=== PATIENT | male | born 1955 | race Caucasian/White ===

== ENCOUNTER 2023-03-06 13:54 | Inpatient (IN) | payer BC, OTHER ==
[~2023-03-06] VITALS: Ht 185.4 cm; Wt 136.1 kg
[~2023-03-06 13:54] MED LIST: ATOR10TA PO; BUS5 PO; CARV25TA PO; LAM200 PO; QUIN5TAB PO; RIVA20TA PO; TAMS0.4C96 PO; VARD10TA PO; [UNRECOGNIZED DRUG - CODE] PO; [UNRECOGNIZED DRUG - CODE] PO; hydrocodone
[2023-03-06 13:56] VITALS: BP 157/98
[2023-03-06] MEDS ORDERED: MORPHINE SULFATE 4 MG/ML SYR IVP ONE (14:50)
[2023-03-06] MEDS ORDERED: NACL 0.9% 1,000 ML IV ONE ×2 (14:50→18:15)
[2023-03-06 15:23] LABS: BASOPHILS % (AUTO) 0.3 % (0.0-2.0); HEMATOCRIT 34.1 % (36-52); HEMOGLOBIN 11.6 g/dL (12.0-18.0); LYMPHOCYTES # (AUTO) 0.7 K/uL (2.0-11.5); LYMPHOCYTES % (AUTO) 5.5 % (20.5-51.1); MEAN CORPUSCULAR HEMOGLOBIN 33 pg (27-31); MEAN CORPUSCULAR HGB CONC 34 g/dL (33-37); MEAN CORPUSCULAR VOLUME 97.6 fL (80-94); MONOCYTES # (AUTO) 1.5 K/uL (0.8-1.0); NEUTROPHILS # (AUTO) 10.5 K/uL (1.8-7.7); NEUTROPHILS % (AUTO) 82.2 % (42.2-75.2); PLATELET COUNT (AUTO) 366 K/uL (140-450); WHITE BLOOD COUNT (AUTO) 12.8 K/uL (4.8-10.8)
[2023-03-06 15:40] LABS: APPEARANCE,URINE CLEAR (CLEAR); BILIRUBIN,URINE 1+ (NEGATIVE); BLOOD, URINE TRACE-I (NEGATIVE); COLOR,URINE YELLOW (YELLOW); LEUKOCYTE ESTERASE ,URINE 2+ (NEGATIVE); NITRITE, URINE POSITIVE (NEGATIVE); UGLUCOSE NEGATIVE (NEGATIVE)
[2023-03-06 15:48] LABS: ALBUMIN 2.7 g/dL (3.4-5.0); ANION GAP 13.4 (8-16); ASPARTATE AMINOTRANSFERASE 51 U/L (15-37); CARBON DIOXIDE 26.9 mmol/L (21-32); CHLORIDE 88 mmol/L (98-107); CREATININE 1.3 mg/dL (0.6-1.3); GFR ARICAN-AMERICAN 71 mL/min (>90); GLUCOSE 122 mg/dL (74-106); MAGNESIUM 2.2 mg/dL (1.8-2.4); PHOSPHORUS 2.5 mg/dL (2.5-4.9); POTASSIUM 4.3 mmol/L (3.5-5.1); SODIUM SERUM 124 mmol/L (136-145); THYROID STIMULATING HORMONE 1.45 uIU/mL (0.34-3.74); TOTAL BILIRUBIN 1.5 mg/dL (0.0-1.0); UREA NITROGEN, BLOOD 21 mg/dL (7-18)
[2023-03-06] MEDS ORDERED: cefTRIAXone 1,000 MG VIAL ONE (18:18)
--- NOTE | 2023-03-06 19:25 | NUR ---
Patient will be admitted to care of Dr. ALBERTO. Admited to Tele. Will go to room 123B. Belongings list completed. Report to Rico JIMENEZ.
--- NOTE | 2023-03-06 19:55 | NUR ---
PT WAS TRANSPORTED VIA GURNEY FROM ER. PT IS AAX4 ON RA SATING 97%. PT HAS LEFT AC 20 GAUGE SALINE LOCK. VITAL SIGNS STABLE. URINAL BY BEDSIDE. EDUCATED PT BUSINESS RULES ANALYST LIGHT SYSTEM AND ROOM ENVIRONMENT. SAFETY MEASURES TAKEN. POC DISCUSSED. WILL CONTINUE TO MONITOR THE PT.
[2023-03-06 20:00] VITALS: BP 136/70
[2023-03-06] MEDS ORDERED: MORPHINE SULFATE 2 MG/ML SYR IVP SCH (20:30)
[2023-03-06] MEDS ORDERED: ZOLPIDEM 5 MG TAB PO PRN (21:00)
[2023-03-06] MEDS ORDERED: ONDANSETRON 4 MG/2 ML VIAL IM/IVP PRN (21:00)
[2023-03-06] MEDS ORDERED: POTASSIUM CHLORIDE 10 MEQ TABER PO PRN (21:00)
[2023-03-06] MEDS ORDERED: guaiFENesin DM 200/20 MG-10 ML 10 ML UDC PO PRN (21:00)
[2023-03-06] MEDS ORDERED: HYDROcodone/APAP 7.5/325 MG 1 TAB PO PRN (21:00)
[2023-03-06] MEDS ORDERED: ACETAMINOPHEN 325 MG TAB PO PRN (21:00)
[2023-03-06] MEDS ORDERED: DOCUSATE SODIUM 100 MG GELCAP PO PRN (21:00)
[2023-03-06] MEDS ORDERED: hydrALAZINE 20 MG/ML VIAL IVP PRN (21:05)
[2023-03-06] MEDS: TAMSULOSIN 0.4 MG CAP PO SCH (22:08)
[2023-03-06] MEDS: ATORVASTATIN 20 MG TAB PO SCH (22:09)
[2023-03-06] MEDS: busPIRone 5 MG TAB PO SCH (22:09)
[2023-03-06] MEDS: NACL 0.9% 1,000 ML IV SCH (22:10)
[2023-03-06] MEDS: carvediloL 12.5 MG TAB PO SCH (22:10)
--- NOTE | 2023-03-06 22:10 | NUR ---
SCHEDULE MEDICATIONS GIVEN. NO ADVERSE REACTION NOTED. PT COMPLAINED OF LOWER AND UPPER EXTREMITY PAIN 9/10. MORPHINE WAS GIVEN ORDERED.
[2023-03-06 22:13] LABS: PROTHROMBIN TIME 11.8 secs (10.8-13.4)
[2023-03-06 22:20] LABS: FREE T4 (FREE THYROXINE) 1.33 ng/dL (0.76-1.46)
[2023-03-06] MEDS ORDERED: Z-GUARD PASTE TP PRN (22:45)
[2023-03-07] VITALS: BP 119/66
--- NOTE | 2023-03-07 01:00 | NUR ---
OBSERVED PT. PT IS SLEEPING COMFORTABLY IN BED. PT NOT IN ANY DISTRESS. BREATHING EVEN AND UNLABORED. WILL CONTINUE TO MONITOR THE PT.
[2023-03-07] MEDS: Z-GUARD PASTE TP SCH ×2 (01:06→13:56)
--- NOTE | 2023-03-07 02:35 | NUR ---
PT USED URINAL STANDING UP. PT DENIES ANY DIZZINESS. PT ONLY STATES HE IS IN PAIN. PT IS A LITTLE UNBALANCE.
[2023-03-07 04:00] VITALS: BP 119/58
[2023-03-07] MEDS ORDERED: cefTRIAXone 1,000 MG VIAL ONE (05:32)
[2023-03-07 05:36] LABS: BASOPHILS % (AUTO) 0.2 % (0.0-2.0); EOSINOPHILS % (AUTO) 0.1 % (0.0-4.0); HEMATOCRIT 30.3 % (36-52); HEMOGLOBIN 10.6 g/dL (12.0-18.0); LYMPHOCYTES # (AUTO) 0.9 K/uL (2.0-11.5); LYMPHOCYTES % (AUTO) 7.7 % (20.5-51.1); MEAN CORPUSCULAR HEMOGLOBIN 34 pg (27-31); MEAN CORPUSCULAR HGB CONC 35 g/dL (33-37); MEAN CORPUSCULAR VOLUME 96.6 fL (80-94); MONOCYTES # (AUTO) 1.6 K/uL (0.8-1.0); MONOCYTES % (AUTO) 14.9 % (1.7-9.3); NEUTROPHILS # (AUTO) 8.5 K/uL (1.8-7.7); NEUTROPHILS % (AUTO) 77.1 % (42.2-75.2); PLATELET COUNT (AUTO) 344 K/uL (140-450); RED BLOOD CELL COUNT(AUTO) 3.14 MIL/uL (4.20-6.10); RED CELL DISTRIBUTION WIDTH 14.1 % (11.6-13.7)
[2023-03-07 05:55] LABS: ANION GAP 12.3 (8-16); CARBON DIOXIDE 23.6 mmol/L (21-32); CREATININE 1.2 mg/dL (0.6-1.3); POTASSIUM 3.9 mmol/L (3.5-5.1)
[2023-03-07] MEDS: NACL 0.9% 1,000 ML IV SCH ×3 (06:11→16:33)
--- NOTE | 2023-03-07 07:25 | NUR ---
ENDORSED PT TO DAY SHIFT NURSE FOR CONTINUITY OF CARE. PT IS STABLE.
--- NOTE | 2023-03-07 07:25 | NUR ---
ASSUMED CONTINUITY OF CARE. INITIAL ASSESSMENT DONE. KEEP COMFORTABLE ON BED. FALL PRECAUTION APPLIED. CALL LIGHT WITHIN REACH.
[2023-03-07 08:00] VITALS: BP 140/70
[2023-03-07] MEDS: PANTOPRAZOLE 40 MG TABEC PO SCH (08:56)
[2023-03-07] MEDS: carvediloL 12.5 MG TAB PO SCH ×2 (08:56→21:15)
[2023-03-07] MEDS: busPIRone 5 MG TAB PO SCH ×2 (08:56→21:14)
[2023-03-07] MEDS: RIVAROXABAN 10 MG TAB PO SCH (08:57)
--- NOTE | 2023-03-07 09:18 | NUR ---
PATIENT HAS BEEN SCREENED AND CATEGORIZED LOW NUTRITION RISK. PATIENT WILL BE SEEN WITHIN 7 DAYS OF ADMISSION. 03/13/[address]VIEW[address] BY OLMAN NOLASCO RD
--- NOTE | 2023-03-07 11:18 | NUR ---
Patient's Plan of Care was discussed and reviewed with WASTE MACHINE TENDER: ROSAS
--- NOTE | 2023-03-07 11:26 | NUR ---
DC PLANN[age] YRS OLD MALE PATIENT WAS ADMITTED FROM HOME WITH A DX OF WEAKNESS, HYPONATREMIA AND UTI. PATIENT HAS A HX OF A-FIB WITH PACEMAKER . CXR SHOWED BORDERLINE CARDIOMEGALY. CT HEAD NEGATIVE. XR OF LEFT AND RIGHT HUMERUS NO FRACTURE. BLOOD CULTURE PENDING. RAPID COVID TEST NEGATIVE. ADMINISTERED IVF, IV ABX ROCEPHIN AND CONTINUED HOME MEDS. CONSULTED WITH NEPHRO AND CARDIO. DC PLAN TO GO HOME WHEN STABLE. CM TO FOLLOW Addendum: 03/08/23 at 1104 by Lisa Marie RN DC PLANNING: SEEN BY CARDIO AND NEPHRO CONTINUE CURRENT TREATMENTS. CONTINUED IV ABX ROCEPHIN FOR UTI. PER A PHYSICAL THERAPY RECOMMENDATION TO BE DISCHARGED TO REHAB. PATIENT AGREED TO GO TO [facility]. [place] [facility] [place] [facility] [place] TO FOLLOW Addendum: 03/08/23 at 1227 by Lisa Marie RN DC PLANNING: ANNELIESE FROM [facility] VISITED PATIENT ANSWERED ALL QUESTION AND CONCERN AND PATIENT AGREED TO GO TO [facility] WHEN STABLE. CM TO FOLLOW Addendum: 03/10/23 at 1429 by Lisa Marie RN DC PLANNING: AWAITING FOR SUNNY PROCEDURE TO R/O ENDOCARDITIS. PATIENT GOT ACCEPTED AT [facility] CAN GO TO ROOM 38 PLS CALL KIN AT [phone] WILL ARRANGE TRANSPORT. CM TO FOLLOW
[2023-03-07] MEDS: MORPHINE SULFATE 2 MG/ML SYR IVP PRN ×2 (11:39→21:15)
--- NOTE | 2023-03-07 11:39 | NUR ---
C/O GEN. PAIN 07/23. NO ACUTE DISTRESS NOTED. MORPHINE 3 MG IVP PER MD ORDER GIVEN BY JOSÉ MIGUEL BOX. WASTED 1 MG AND WAS WITNESSED BY SLY BOX.
[2023-03-07 12:00] VITALS: BP 148/65
--- NOTE | 2023-03-07 12:01 | NUR ---
DC PLANNING ASSESSMENT COMPLETE PLEASE REFER TO ASSESSMENT FOR ADDITIONAL DETAILS PT REPORTS DC PLAN IS TENTATIVE ON PHYSICIANS RECOMMENDATIONS AND REPORTS BEING AGREEABLE TO SNF IF RECOMMENDED. PT IS A 67 YR OLD MALE ADMITTED TO [facility] FROM HOME WITH DX OF WEAKNESS, HYPONATREMIA & UTI PT REPORTS HX OF SUBSTANCE USE , SUBSTANCE OF USE; ALCOHOL. PT REPORTS DRINKING WINE ABOUT 3X DAILY/EVERYDAY. PT REPORTS DRINKING SINCE THE AGE OF 18 YRS OLD. PT REPORTS LAST DRINK WAS ABOUT THREE DAYS AGO. PROVIDED PT WITH PSYCHOEDUCATION ON PLASTER FORM MAKER ALCOHOL USE, PT RECEPTIVE HOWEVER, REFUSED SUBSTANCE USE RESOURCES AND REPORTS NOT BEING INTERESTED IN RESOURCES OFFERED BY . PT REPORTS DRINKING DOES NOT IMPAIR DAILY FX. PT REPORTS MENTAL HEALTH HX OF DEPRESSION THAT IS WELL MANAGED WITH MEDICATION. PT REPORTS MEETING WITH PSYCHIATRIST 1X MONTHLY AND MENTAL HEALTH THERAPIST 1X EVERY TWO WEEKS. Addendum: 03/07/23 at 1203 by Lopez Plummer SS Amended: Links added.
[2023-03-07 16:00] VITALS: BP 135/76
--- NOTE | 2023-03-07 18:09 | NUR ---
P.T. NOTES P.T. EVAL COMPLETED; REFER TO EVAL FOR DETAILS.
--- NOTE | 2023-03-07 19:08 | NUR ---
REPORT GIVEN TO CORRINA BOX FOR CONTINUITY OF CARE. IVF INFUSING WELL. IN STABLE CONDITION.
--- NOTE | 2023-03-07 19:30 | NUR ---
RECEIVED REPORT FROM DAY SHIFT RN FOR CONTINUITY OF CARE. PT IS RESTING IN BED. PT ASKED HELP TO USE THE URINAL WHILE STANDING UP. ASSISTED PT. NO DIZZINESS REPORTED. PT HAS IV ON LEFT AC 20 GAUGE RUNNING NS 100 CC/HR. POC DISCUSSED. WILL CONTINUE TO MONITOR THE PT.
[2023-03-07 20:00] VITALS: BP 117/62
[2023-03-07] MEDS: TAMSULOSIN 0.4 MG CAP PO SCH (21:14)
[2023-03-07] MEDS: ATORVASTATIN 20 MG TAB PO SCH (21:15)
[2023-03-08] VITALS: BP 95/49
[2023-03-08] MEDS: Z-GUARD PASTE TP SCH ×2 (01:00→13:43)
[2023-03-08 04:00] VITALS: BP 126/75
[2023-03-08 05:27] LABS: BASOPHILS % (AUTO) 0.2 % (0.0-2.0); EOSINOPHILS % (AUTO) 0.2 % (0.0-4.0); HEMATOCRIT 30.9 % (36-52); HEMOGLOBIN 10.7 g/dL (12.0-18.0); LYMPHOCYTES # (AUTO) 0.8 K/uL (2.0-11.5); LYMPHOCYTES % (AUTO) 8.4 % (20.5-51.1); MEAN CORPUSCULAR HEMOGLOBIN 34 pg (27-31); MEAN CORPUSCULAR HGB CONC 35 g/dL (33-37); MONOCYTES # (AUTO) 1.3 K/uL (0.8-1.0); MONOCYTES % (AUTO) 13.1 % (1.7-9.3); NEUTROPHILS # (AUTO) 7.9 K/uL (1.8-7.7); NEUTROPHILS % (AUTO) 78.1 % (42.2-75.2); PLATELET COUNT (AUTO) 389 K/uL (140-450); RED BLOOD CELL COUNT(AUTO) 3.19 MIL/uL (4.20-6.10); WHITE BLOOD COUNT (AUTO) 10.1 K/uL (4.8-10.8)
[2023-03-08 06:03] LABS: ANION GAP 10.6 (8-16); CREATININE 1.2 mg/dL (0.6-1.3); POTASSIUM 4.6 mmol/L (3.5-5.1)
--- NOTE | 2023-03-08 07:15 | NUR ---
ASSUMED CONTINUITY OF CARE. INITIAL ASSESSMENT DONE. KEEP COMFORTABLE ON BED. FALL PRECAUTION APPLIED. CALL LIGHT WITHIN REACH.
--- NOTE | 2023-03-08 07:20 | NUR ---
ENDORSED PT TO DAY SHIFT RN FOR CONTINUITY OF CARE. PT IS STABLE.
[2023-03-08 08:00] VITALS: BP 143/67
[2023-03-08 08:08] LABS: T4 (THYROXINE) 6.6 ug/dL (4.5-12.0)
[2023-03-08] MEDS: carvediloL 12.5 MG TAB PO SCH ×2 (08:50→20:28)
[2023-03-08] MEDS: busPIRone 5 MG TAB PO SCH ×2 (08:50→20:23)
[2023-03-08] MEDS: PANTOPRAZOLE 40 MG TABEC PO SCH (08:50)
[2023-03-08] MEDS: RIVAROXABAN 10 MG TAB PO SCH (08:50)
--- NOTE | 2023-03-08 10:39 | NUR ---
Patient's Plan of Care was discussed and reviewed with FORENSIC TOXICOLOGIST:
[2023-03-08] MEDS: MORPHINE SULFATE 2 MG/ML SYR IVP PRN ×2 (10:43→19:42)
--- NOTE | 2023-03-08 10:43 | NUR ---
C/O GEN. PAIN 07/23. NO ACUTE DISTRESS NOTED. MEDICATED PER MD ORDER MORPHINE 3 MG IVP GIVEN BY DALLIN BOX. WASTED MORPHINE 1 MG. WILL MONITOR PT..
[2023-03-08 12:00] VITALS: BP 141/80
[2023-03-08] MEDS: NACL 0.9% 1,000 ML IV SCH ×2 (14:09→23:03)
[2023-03-08 16:00] VITALS: BP 121/79
--- NOTE | 2023-03-08 19:18 | NUR ---
BEDSIDE REPORT GIVEN TO SHANTELL BOX. IN STABLE CONDITION.
--- NOTE | 2023-03-08 19:25 | NUR ---
RECEIVED PATIENT FROM AM NURSE FOR CONTINUITY OF CARE. PT IS STABLE
--- NOTE | 2023-03-08 19:40 | NUR ---
PATIENT C/O PAIN. MORPHINE 3 MG GIVEN PER MD ORDER. WASTED I MG . LONNY JIMENEZ WITNESSED THE WASTE
[2023-03-08 20:00] VITALS: BP 147/79
[2023-03-08] MEDS: TAMSULOSIN 0.4 MG CAP PO SCH (20:24)
[2023-03-08] MEDS: ATORVASTATIN 20 MG TAB PO SCH (20:27)
[2023-03-09] VITALS: BP 141/79
[2023-03-09] MEDS: MORPHINE SULFATE 2 MG/ML SYR IVP PRN (01:10)
--- NOTE | 2023-03-09 01:10 | NUR ---
PATIENT C/O GEN WEAKNESS 07/23. MEDICATED WITH MORPHINE 3 MG PER MD ORDER. WASTED I MG
[2023-03-09] MEDS: NYSTATIN POW 100 MU/GM 15 GM BTL TP SCH ×2 (01:11→12:39)
[2023-03-09] MEDS: Z-GUARD PASTE TP SCH ×2 (01:12→12:39)
--- NOTE | 2023-03-09 02:00 | NUR ---
PATIENT SLEEPING COMFORTABLY, NO DISTRESS NOTED
[2023-03-09 04:00] VITALS: BP 127/73
[2023-03-09 05:10] LABS: BASOPHILS % (AUTO) 0.2 % (0.0-2.0); EOSINOPHILS % (AUTO) 0.2 % (0.0-4.0); HEMOGLOBIN 10.5 g/dL (12.0-18.0); LYMPHOCYTES % (AUTO) 9.5 % (20.5-51.1); MEAN CORPUSCULAR HEMOGLOBIN 33 pg (27-31); MEAN CORPUSCULAR HGB CONC 34 g/dL (33-37); MEAN CORPUSCULAR VOLUME 98.3 fL (80-94); MONOCYTES # (AUTO) 1.5 K/uL (0.8-1.0); MONOCYTES % (AUTO) 14.2 % (1.7-9.3); NEUTROPHILS # (AUTO) 7.9 K/uL (1.8-7.7); NEUTROPHILS % (AUTO) 75.9 % (42.2-75.2); PLATELET COUNT (AUTO) 420 K/uL (140-450); RED BLOOD CELL COUNT(AUTO) 3.15 MIL/uL (4.20-6.10); RED CELL DISTRIBUTION WIDTH 14.2 % (11.6-13.7); WHITE BLOOD COUNT (AUTO) 10.4 K/uL (4.8-10.8)
[2023-03-09 05:33] LABS: ANION GAP 11.5 (8-16); CREATININE 1.1 mg/dL (0.6-1.3); POTASSIUM 4.5 mmol/L (3.5-5.1)
--- NOTE | 2023-03-09 07:15 | NUR ---
RECEIVED REPORT FROM NIGHTSHIFT NURSE. PT IS AWAKE, RESTING IN BED. IV TO LEFT AC SLIGHTLY PULLED OUT, LEAKING, HAD TO REMOVE AND APPLY IV SITE DRESSING. WILL START NEW IV. NO FURTHER NEEDS ARE TO BE MET AT THIS TIME. REORIENTED PT TO CALL LIGHT. BED PLACED IN LOWEST POSITION, SIDE RAILS UP, CALL LIGHT PLACED WITHIN REACH. WILL CONTINUE WITH PATIENT CARE.
[2023-03-09 08:00] VITALS: BP 145/70
--- NOTE | 2023-03-09 08:30 | NUR ---
PT MOVED FROM RM 123B TO 113. NOW ON CONTACT PRECAUTIONS. CONTACT PRECAUTIONS APPLIED, SIGNS POSTED ON DOOR. STAFF NOTIFIED OF PT'S ISOLATION. PT IS IN BED, RESTING. NO SIGNS OF DISTRESS. ORIENTED PT TO NEW ROOM AND NEW BED. REORIENTED PT TO CALL LIGHT. NO FURTHER NEEDS ARE TO BE MET AT THIS TIME. WILL CONTINUE WITH CARE.
[2023-03-09] MEDS ORDERED: VANCOMYCIN PER PHARMACY MC PRN (08:55)
[2023-03-09] MEDS: NACL 0.9% 1,000 ML IV SCH ×2 (09:24→19:00)
[2023-03-09] MEDS: RIVAROXABAN 10 MG TAB PO SCH (09:26)
[2023-03-09] MEDS: THIAMINE 100 MG TAB PO SCH (09:27)
[2023-03-09] MEDS: PANTOPRAZOLE 40 MG TABEC PO SCH (09:27)
[2023-03-09] MEDS: busPIRone 5 MG TAB PO SCH ×2 (09:27→20:59)
[2023-03-09] MEDS: carvediloL 12.5 MG TAB PO SCH ×2 (09:27→20:58)
[2023-03-09] MEDS: FOLIC ACID 1 MG TAB PO SCH (09:27)
[2023-03-09] MEDS: VANCOMYCIN 1,000 MG in DEXTROSE 5% 250 ML IV SCH ×2 (10:03→19:00)
[2023-03-09] MEDS: MUPIROCIN CA NASAL 2% 1GM TUBE NS SCH (11:00)
[2023-03-09] MEDS: CHLORHEXADINE GLUC 2% CLOTH TP SCH (11:00)
[2023-03-09 12:00] VITALS: BP 148/75
[2023-03-09] MEDS: MORPHINE SULFATE 4 MG/ML SYR IVP PRN ×2 (12:18→20:55)
[2023-03-09] MEDS: PIPERACILLIN/TAZOBACTAM 3.375 GM in DEXTROSE 5% 50 ML IV SCH ×2 (12:18→18:00)
[2023-03-09 16:00] VITALS: BP 142/72
--- NOTE | 2023-03-09 19:30 | NUR ---
RECEIVED REPORT FROM DAY SHIFT NURSE JOSÉ MIGUEL FOR CONTINUITY OF CARE. PT A/A/O ABLE TO MAKE NEEDS KNOWN. ON ELECTRONICS TECH. RESPIRATIONS EVEN AND UNLABORED ON RA. NO DISTRESS NOTED. NO COMPLAINTS OF PAIN. IV SITE ON RFA 22G INFUSING NS AT 100ML/HR. POC DISCUSSED. REPORT GIVEN TO BARBARA REGAN. CALL LIGHT WITHIN REACH. SAFETY PRECAUTIONS IN PLACE.
--- NOTE | 2023-03-09 19:31 | NUR ---
Patient's Plan of Care was discussed and reviewed with DANIELLA: GAVIN
[2023-03-09 20:00] VITALS: BP 163/87
--- NOTE | 2023-03-09 20:58 | NUR ---
ADMINISTERED DUE MEDS. PT TOLERATED WELL. PT COMPLAINED OF GENERALIZED PAIN 07/23. PRN PAIN MED GIVEN BY RN. PT CLOSELY MONITORED.
[2023-03-09] MEDS: ATORVASTATIN 20 MG TAB PO SCH (20:59)
[2023-03-09] MEDS: TAMSULOSIN 0.4 MG CAP PO SCH (21:00)
[2023-03-10] VITALS: BP 155/83
[2023-03-10] MEDS: NYSTATIN POW 100 MU/GM 15 GM BTL TP SCH ×2 (00:49→13:10)
[2023-03-10] MEDS: Z-GUARD PASTE TP SCH ×2 (00:49→13:10)
--- NOTE | 2023-03-10 00:53 | NUR ---
GAVE REPORT TO BARBARA STINSON FOR CONTINUITY OF CARE. PT SLEEPING, EASILY AROUSABLE BY VERBAL STIMULI. RESPIRATIONS EVEN AND UNLABORED. NO DISTRESS NOTED. SAFETY PRECAUTIONS IN PLACE. PT IS STABLE.
--- NOTE | 2023-03-10 01:00 | NUR ---
RECEIVED PT FROM NURSE ALONSO FOR CONTINUITY OF CARE. PT IS STABLE
[2023-03-10] MEDS: VANCOMYCIN 1,000 MG in DEXTROSE 5% 250 ML IV SCH ×3 (02:18→18:57)
[2023-03-10 04:00] VITALS: BP 140/68
--- NOTE | 2023-03-10 04:00 | NUR ---
PT COMPLAIN OF 8/10 PAIN . 3 MG MORPHINE SULFATE GIVEN IV PUSH. WASTED 1 MG WITNESSED BY ANOTHER NURSE
[2023-03-10] MEDS: MORPHINE SULFATE 4 MG/ML SYR IVP PRN ×3 (04:03→22:47)
[2023-03-10] MEDS: NACL 0.9% 1,000 ML IV SCH ×2 (04:58→18:59)
[2023-03-10 06:49] LABS: BASOPHILS # (AUTO) 0.1 K/uL (0.00-0.22); BASOPHILS % (AUTO) 0.8 % (0.0-2.0); EOSINOPHILS % (AUTO) 0.5 % (0.0-4.0); HEMATOCRIT 31.3 % (36-52); HEMOGLOBIN 10.8 g/dL (12.0-18.0); LYMPHOCYTES % (AUTO) 9.5 % (20.5-51.1); MEAN CORPUSCULAR HEMOGLOBIN 34 pg (27-31); MEAN CORPUSCULAR HGB CONC 34 g/dL (33-37); MEAN CORPUSCULAR VOLUME 98.5 fL (80-94); MONOCYTES # (AUTO) 1.2 K/uL (0.8-1.0); MONOCYTES % (AUTO) 11.5 % (1.7-9.3); NEUTROPHILS # (AUTO) 7.8 K/uL (1.8-7.7); NEUTROPHILS % (AUTO) 77.7 % (42.2-75.2); PLATELET COUNT (AUTO) 452 K/uL (140-450); RED BLOOD CELL COUNT(AUTO) 3.18 MIL/uL (4.20-6.10); RED CELL DISTRIBUTION WIDTH 14.3 % (11.6-13.7); WHITE BLOOD COUNT (AUTO) 10.1 K/uL (4.8-10.8)
[2023-03-10 06:55] LABS: ANION GAP 11.9 (8-16); CARBON DIOXIDE 26.3 mmol/L (21-32); CREATININE 1.1 mg/dL (0.6-1.3); POTASSIUM 4.2 mmol/L (3.5-5.1)
[2023-03-10 08:00] VITALS: BP 164/82
[2023-03-10] MEDS: FOLIC ACID 1 MG TAB PO SCH (10:31)
[2023-03-10] MEDS: PANTOPRAZOLE 40 MG TABEC PO SCH (10:31)
[2023-03-10] MEDS: THIAMINE 100 MG TAB PO SCH (10:31)
[2023-03-10] MEDS: busPIRone 5 MG TAB PO SCH ×2 (10:31→22:45)
[2023-03-10] MEDS: MUPIROCIN CA NASAL 2% 1GM TUBE NS SCH (10:32)
[2023-03-10] MEDS: carvediloL 12.5 MG TAB PO SCH ×2 (10:32→22:45)
[2023-03-10] MEDS: RIVAROXABAN 10 MG TAB PO SCH (10:37)
[2023-03-10 12:00] VITALS: BP 147/86
[2023-03-10] MEDS: CHLORHEXADINE GLUC 2% CLOTH TP SCH (13:09)
[2023-03-10 20:00] VITALS: BP 146/82
[2023-03-10] MEDS: ATORVASTATIN 20 MG TAB PO SCH (22:42)
[2023-03-10] MEDS: TAMSULOSIN 0.4 MG CAP PO SCH (22:45)
[2023-03-10] MEDS: SODIUM CHLORIDE 1 GM TAB PO SCH (22:46)
[2023-03-11] VITALS: BP 106/71
[2023-03-11] MEDS: NACL 0.9% 1,000 ML IV SCH ×2 (01:00→11:15)
[2023-03-11] MEDS: Z-GUARD PASTE TP SCH ×2 (02:21→12:26)
[2023-03-11] MEDS: VANCOMYCIN 1,000 MG in DEXTROSE 5% 250 ML IV SCH ×3 (02:21→17:02)
[2023-03-11] MEDS: NYSTATIN POW 100 MU/GM 15 GM BTL TP SCH ×2 (02:22→12:25)
[2023-03-11 04:00] VITALS: BP 145/60
[2023-03-11 07:22] LABS: BASOPHILS % (AUTO) 0.4 % (0.0-2.0); EOSINOPHILS # (AUTO) 0.1 K/uL (0-0.4); EOSINOPHILS % (AUTO) 0.7 % (0.0-4.0); HEMATOCRIT 30.6 % (36-52); HEMOGLOBIN 10.5 g/dL (12.0-18.0); LYMPHOCYTES # (AUTO) 1.1 K/uL (2.0-11.5); LYMPHOCYTES % (AUTO) 12.3 % (20.5-51.1); MEAN CORPUSCULAR HEMOGLOBIN 33 pg (27-31); MEAN CORPUSCULAR HGB CONC 34 g/dL (33-37); MEAN CORPUSCULAR VOLUME 97.7 fL (80-94); MONOCYTES # (AUTO) 1.4 K/uL (0.8-1.0); NEUTROPHILS # (AUTO) 6.2 K/uL (1.8-7.7); NEUTROPHILS % (AUTO) 70.9 % (42.2-75.2); PLATELET COUNT (AUTO) 406 K/uL (140-450); RED BLOOD CELL COUNT(AUTO) 3.13 MIL/uL (4.20-6.10); WHITE BLOOD COUNT (AUTO) 8.7 K/uL (4.8-10.8)
[2023-03-11 07:37] LABS: CREATININE 0.9 mg/dL (0.6-1.3); POTASSIUM 4.5 mmol/L (3.5-5.1)
[2023-03-11 07:45] LABS: ANION GAP 11.9 (8-16); CARBON DIOXIDE 23.6 mmol/L (21-32)
[2023-03-11 08:00] VITALS: BP 132/84
[2023-03-11 08:12] LABS: MONOCYTES % (AUTO) 15.7 % (1.7-9.3)
[2023-03-11] MEDS: MORPHINE SULFATE 4 MG/ML SYR IVP PRN ×4 (08:45→21:00)
[2023-03-11] MEDS: SODIUM CHLORIDE 1 GM TAB PO SCH ×2 (08:53→20:54)
[2023-03-11] MEDS: FOLIC ACID 1 MG TAB PO SCH (08:53)
[2023-03-11] MEDS: PANTOPRAZOLE 40 MG TABEC PO SCH (08:53)
[2023-03-11] MEDS: carvediloL 12.5 MG TAB PO SCH ×2 (08:53→20:52)
[2023-03-11] MEDS: RIVAROXABAN 10 MG TAB PO SCH (08:55)
[2023-03-11] MEDS: FUROSEMIDE 20 MG TAB PO SCH (08:55)
[2023-03-11] MEDS: THIAMINE 100 MG TAB PO SCH (08:55)
[2023-03-11] MEDS: busPIRone 5 MG TAB PO SCH ×2 (08:59→20:52)
[2023-03-11] MEDS: MUPIROCIN CA NASAL 2% 1GM TUBE NS SCH (11:14)
[2023-03-11] MEDS: CHLORHEXADINE GLUC 2% CLOTH TP SCH (11:14)
[2023-03-11 12:00] VITALS: BP 151/91
[2023-03-11 16:00] VITALS: BP 146/86
[2023-03-11 20:00] VITALS: BP 121/61
[2023-03-11] MEDS: ATORVASTATIN 20 MG TAB PO SCH (20:52)
[2023-03-11] MEDS: TAMSULOSIN 0.4 MG CAP PO SCH (20:55)
[2023-03-12] VITALS: BP 122/75
[2023-03-12] MEDS: VANCOMYCIN 1,000 MG in DEXTROSE 5% 250 ML IV SCH (01:50)
[2023-03-12] MEDS: Z-GUARD PASTE TP SCH ×2 (01:54→13:41)
[2023-03-12] MEDS: NYSTATIN POW 100 MU/GM 15 GM BTL TP SCH ×2 (01:55→13:41)
[2023-03-12] MEDS: MORPHINE SULFATE 4 MG/ML SYR IVP PRN ×3 (02:06→18:07)
[2023-03-12 04:00] VITALS: BP 139/67
--- NOTE | 2023-03-12 07:25 | NUR ---
RECEIVED BEDSIDE REPORT FROM NIGHT NURSE LEELEE. PT IS AWAKE, AOX4. ABLE TO VERBALIZE NEEDS. RESPIRATIONS EVEN AND UNLABORED ON RA. NO DISTRESS NOTED. IV ON RAC 20G, SL. CALL LIGHT WITHIN REACH, ALL SAFETY PRECAUTIONS IN PLACE.
[2023-03-12 08:00] VITALS: BP 113/84
[2023-03-12] MEDS: RIVAROXABAN 10 MG TAB PO SCH (08:53)
[2023-03-12] MEDS: carvediloL 12.5 MG TAB PO SCH ×2 (08:54→21:57)
[2023-03-12] MEDS: THIAMINE 100 MG TAB PO SCH (08:54)
[2023-03-12] MEDS: FOLIC ACID 1 MG TAB PO SCH (08:54)
[2023-03-12] MEDS: PANTOPRAZOLE 40 MG TABEC PO SCH (08:54)
[2023-03-12] MEDS: busPIRone 5 MG TAB PO SCH ×2 (08:55→21:55)
[2023-03-12] MEDS: SODIUM CHLORIDE 1 GM TAB PO SCH ×2 (08:55→21:56)
[2023-03-12] MEDS: FUROSEMIDE 20 MG TAB PO SCH (08:55)
--- NOTE | 2023-03-12 09:00 | NUR ---
SCHEDULED MORNING MEDS GIVEN, PT TOLERATING WELL.
[2023-03-12 09:40] LABS: ANION GAP 11.7 (8-16); CARBON DIOXIDE 24.6 mmol/L (21-32); POTASSIUM 4.3 mmol/L (3.5-5.1)
--- NOTE | 2023-03-12 10:25 | NUR ---
PT C/O OF GENERALIZED PAIN 06/22 GIVEN IV PAIN MED BY [facility].
[2023-03-12 10:30] LABS: BASOPHILS # (AUTO) 0.1 K/uL (0.00-0.22); BASOPHILS % (AUTO) 0.8 % (0.0-2.0); EOSINOPHILS # (AUTO) 0.1 K/uL (0-0.4); EOSINOPHILS % (AUTO) 0.6 % (0.0-4.0); HEMATOCRIT 31.1 % (36-52); HEMOGLOBIN 10.5 g/dL (12.0-18.0); LYMPHOCYTES # (AUTO) 0.7 K/uL (2.0-11.5); MEAN CORPUSCULAR HEMOGLOBIN 33 pg (27-31); MEAN CORPUSCULAR HGB CONC 34 g/dL (33-37); MEAN CORPUSCULAR VOLUME 97.4 fL (80-94); MONOCYTES # (AUTO) 1.3 K/uL (0.8-1.0); MONOCYTES % (AUTO) 14.1 % (1.7-9.3); NEUTROPHILS # (AUTO) 7.1 K/uL (1.8-7.7); NEUTROPHILS % (AUTO) 76.5 % (42.2-75.2); PLATELET COUNT (AUTO) 235 K/uL (140-450); RED CELL DISTRIBUTION WIDTH 14.2 % (11.6-13.7); WHITE BLOOD COUNT (AUTO) 9.3 K/uL (4.8-10.8)
[2023-03-12] MEDS: CHLORHEXADINE GLUC 2% CLOTH TP SCH (11:00)
[2023-03-12] MEDS: MUPIROCIN CA NASAL 2% 1GM TUBE NS SCH (11:04)
[2023-03-12 12:00] VITALS: BP 155/86
--- NOTE | 2023-03-12 12:09 | NUR ---
RECEIVED CALL FROM KIN AT [facility], ASKING IF PT WAS READY TO GO TO FACILITY TODAY. INFORMED HER PT IS AWAITING SUNNY TEST. THERE IS NO DC ORDER, PT AWAITING TEST TO R/O ENDOCARDITIS.
--- NOTE | 2023-03-12 15:26 | NUR ---
MAKING ROUNDS PT IN BED SLEEPING. VISIBLE CHEST RISE/FALL. CALL LIGHT WITHIN REACH.
[2023-03-12 16:00] VITALS: BP 135/76
--- NOTE | 2023-03-12 18:12 | NUR ---
PT C/O OF GENERALIZED PAIN 06/22. MEDICATED WITH IV PAIN MED BY [facility].
--- NOTE | 2023-03-12 19:23 | NUR ---
ENDORSED PT TO WHARFMASTER NURSE FOR CONTINUITY OF CARE. PT IS STABLE.
--- NOTE | 2023-03-12 19:30 | NUR ---
RECEIVED REPORT FROM DAY SHIFT NURSE JOANNA FOR CONTINUITY OF CARE. PATIENT IS A&O X4. PATIENT IS ON ROOM AIR, BREATHING IS NORMAL WITH SYMMETRICAL RISE AND FALL OF CHEST. IV IS A 20G RAC AND 20G RFA; RUNNING NS 10ML TKO. PATIENT IS AWAKE, SITTING HIGH-FOWLERS POSITION WATCHING TV. BED IS IN LOWEST POSITION, WHEELS LOCKED, CALL LIGHT IN PLACE. WILL CONTINUE TO OBSERVE PATIENT.
[2023-03-12 20:00] VITALS: BP 136/58
[2023-03-12] MEDS: VANCOMYCIN 1,500 MG in NACL 0.9% 500 ML IV SCH (21:00)
[2023-03-12] MEDS: TAMSULOSIN 0.4 MG CAP PO SCH (21:57)
[2023-03-12] MEDS: ATORVASTATIN 20 MG TAB PO SCH (21:57)
--- NOTE | 2023-03-12 22:41 | NUR ---
2100 MEDICATIONS ADMINISTERED SUCCESSFULLY WITHOUT ANY ISSUES WITH SWALLOWING. 2100 VANCOMYCIN WAS NOT ADMINISTERED DUE TO TROPH OVER 20 PER PROTOCOL (TROPH 20.1). CALLED [facility] AND INFORMED PHARMACIST TRINITY OF TROPH LEVEL AND NON ADMINISTRATION OF VANCO. TRINITY THANKED ME FOR LETTING HIM KNOW AND SAID HE WOULD MAKE A NOTE OF IT. WILL CONTINUE TO OBSERVE PATIENT.
--- NOTE | 2023-03-12 23:12 | NUR ---
RECEIVED CALL FROM PHARMACIST TRINITY; TRINITY ORDERED A STAT VANCO TROPH TO BE DONE TO RECHECK PATIENT'S TROPH LEVEL. PUT THE ORDER IN. WILL UPDATE TRINITY ONCE RESULTS ARE OBTAINED.
[2023-03-13] VITALS: BP 130/70
[2023-03-13] MEDS: VANCOMYCIN 1,500 MG in NACL 0.9% 500 ML IV SCH ×2 (00:13→15:18)
[2023-03-13] MEDS: MORPHINE SULFATE 4 MG/ML SYR IVP PRN ×4 (00:48→19:50)
--- NOTE | 2023-03-13 01:00 | NUR ---
RECEIVED TROPH VALUE. TROPH WAS 12.7; NOTIFIED PHARMACIST TRINITY. PHARMACIST INSTRUCTED ME TO GIVE THE PATIENT THE VANCO AND HE WOULD SET UP A NEW SCHEDULE. ADMINISTERED VANCOMYCIN IVPB TO PATIENT. PATIENT ALSO REQUESTED PAIN MEDICATION FOR 8/10 PAIN. CHECKED PATIENT'S VITALS AND CHART; MORPHINE WAS APPROPRIATE TO ADMINISTER. ADMINISTERED MORPHINE TO PATIENT. WILL CONTINUE TO OBSERVE PATIENT.
[2023-03-13] MEDS: Z-GUARD PASTE TP SCH ×2 (01:09→13:04)
[2023-03-13] MEDS: NYSTATIN POW 100 MU/GM 15 GM BTL TP SCH (01:09)
[2023-03-13 04:00] VITALS: BP 132/64
--- NOTE | 2023-03-13 07:04 | NUR ---
PATIENT REQUESTED PAIN MEDICATION FOR 8 PAIN. CHECKED PATIENT'S VITALS AND CHART. MORPHINE WAS APPROPRIATE TO ADMINISTER. MEDICATION ADMINISTERED SUCCESSFULLY WITHOUT ANY ISSUES WITH IV. PATIENT'S BREATHING IS NORMAL WITH SYMMETRICAL RISE AND FALL OF CHEST. WILL CONTINUE TO OBSERVE PATIENT.
--- NOTE | 2023-03-13 07:20 | NUR ---
RECEIVED REPORT FROM STUDY LEAD NURSE FOR CONTINUITY OF CARE. PT STABLE AT THIS TIME.
[2023-03-13 07:26] LABS: BASOPHILS # (AUTO) 0.1 K/uL (0.00-0.22); BASOPHILS % (AUTO) 0.7 % (0.0-2.0); EOSINOPHILS % (AUTO) 0.5 % (0.0-4.0); HEMATOCRIT 29.9 % (36-52); HEMOGLOBIN 10.1 g/dL (12.0-18.0); LYMPHOCYTES # (AUTO) 0.9 K/uL (2.0-11.5); LYMPHOCYTES % (AUTO) 9.9 % (20.5-51.1); MEAN CORPUSCULAR HEMOGLOBIN 33 pg (27-31); MEAN CORPUSCULAR HGB CONC 34 g/dL (33-37); MEAN CORPUSCULAR VOLUME 96.7 fL (80-94); MONOCYTES # (AUTO) 1.1 K/uL (0.8-1.0); MONOCYTES % (AUTO) 12.6 % (1.7-9.3); NEUTROPHILS # (AUTO) 6.8 K/uL (1.8-7.7); NEUTROPHILS % (AUTO) 76.3 % (42.2-75.2); PLATELET COUNT (AUTO) 316 K/uL (140-450); RED BLOOD CELL COUNT(AUTO) 3.09 MIL/uL (4.20-6.10); RED CELL DISTRIBUTION WIDTH 14.5 % (11.6-13.7); WHITE BLOOD COUNT (AUTO) 8.9 K/uL (4.8-10.8)
--- NOTE | 2023-03-13 07:49 | NUR ---
ENDORSED TO DAY SHIFT NURSE TAVO FOR CONTINUITY OF CARE. PATIENT IS STABLE.
[2023-03-13 07:50] LABS: ANION GAP 10.6 (8-16); CARBON DIOXIDE 26.7 mmol/L (21-32); POTASSIUM 4.3 mmol/L (3.5-5.1)
[2023-03-13 08:00] VITALS: BP 148/69
[2023-03-13] MEDS: PANTOPRAZOLE 40 MG TABEC PO SCH (09:00)
[2023-03-13] MEDS: THIAMINE 100 MG TAB PO SCH (09:00)
[2023-03-13] MEDS: RIVAROXABAN 10 MG TAB PO SCH (09:00)
[2023-03-13] MEDS: FOLIC ACID 1 MG TAB PO SCH (09:00)
[2023-03-13] MEDS: busPIRone 5 MG TAB PO SCH ×2 (09:40→20:06)
[2023-03-13] MEDS: FUROSEMIDE 20 MG TAB PO SCH (09:40)
[2023-03-13] MEDS: carvediloL 12.5 MG TAB PO SCH ×2 (09:40→20:06)
[2023-03-13] MEDS: SODIUM CHLORIDE 1 GM TAB PO SCH ×2 (09:40→20:06)
[2023-03-13] MEDS: CHLORHEXADINE GLUC 2% CLOTH TP SCH (11:07)
[2023-03-13] MEDS: MUPIROCIN CA NASAL 2% 1GM TUBE NS SCH (11:11)
[2023-03-13 12:00] VITALS: BP 146/69
[2023-03-13] MEDS ORDERED: fentaNYL citrate 0.05 MG/ML VIAL ONE (13:45)
[2023-03-13] MEDS ORDERED: MIDAZOLAM 2 MG/2 ML VIAL ONE (13:45)
[2023-03-13] MEDS ORDERED: BENZOCAINE 20% 57 GM CAN MC ONE (13:46)
--- NOTE | 2023-03-13 14:19 | NUR ---
PHYSICAL THERAPY CO-SIGN The Physical Therapy Progress Notes documented by Hoop Maker Helper Machine have been reviewed. Reviewed/Co-Signed by: Giovanna Mcdaniel PT Documentation Done by:MICHELLE CANALES INDUSTRIAL HYGIENIST Addendum: 03/13/23 at 1420 by Giovanna Mcdaniel PT Amended: Links added.
--- NOTE | 2023-03-13 14:31 | NUR ---
03/13/23 RD INITIAL ASSESSMENT COMPLETED PLEASE REFER TO NUTRITION ASSESSMENT UNDER CARE ACTIVITY FOR ESTIMATED NUTRITIONAL NEEDS. 1. MONITOR NPO STATUS 2. WHEN/IF MEDICALLY APPROPRIATE RECOMMEND CARDIAC, [id number] DIET TOLERATED. 2. MONITOR GI, PO INTAKE, AND NUTRITION RELATED LAB VALUES. 3. RD TO FOLLOW-UP 3-5 DAYS, MODERATE RISK REVIEWED BY OLMAN NOLASCO RD
--- NOTE | 2023-03-13 14:45 | NUR ---
DRILLER MULTIPLE SPINDLE STATED THAT THEY WERE DONE WITH SUNNY AND THEY FOUND SOME VEGETATION ON THE SCAN.
[2023-03-13] MEDS ORDERED: MIDAZOLAM 2 MG/2 ML VIAL IVP ONE (15:10)
[2023-03-13] MEDS ORDERED: fentaNYL citrate 0.05 MG/ML VIAL IVP ONE (15:10)
[2023-03-13 16:00] VITALS: BP 150/74
--- NOTE | 2023-03-13 19:10 | NUR ---
ENDORSED TO BAND TOP MAKER NURSE FOR CONTINUITY OF CARE. PT STABLE AT THIS TIME.
--- NOTE | 2023-03-13 19:15 | NUR ---
RECEIVED PT IN BED, AWAKE, ALERT AND ORIENTED X 4. DENIES PAIN AT THIS TIME. NO ACUTE RESPIRATORY DISTRESS. SKIN WARM AND DRY TO TOUCH. ON CONTACT ISOLATION, SAFETY PRECAUTIONS MAINTAINED DURING THE SHIFT, CALL LIGHT PLACED WITHIN REACH, ENCOURAGED TO CALL IF ASSISTANCE IS NEEDED, PT VERBALLY ACKNOWLEDGED.
[2023-03-13 20:00] VITALS: BP 145/81
[2023-03-13] MEDS: TAMSULOSIN 0.4 MG CAP PO SCH (20:07)
[2023-03-13] MEDS: ATORVASTATIN 20 MG TAB PO SCH (20:07)
--- NOTE | 2023-03-13 22:25 | NUR ---
LAB CALLED REGARDING BLOOD CULTURE- GRAM POSITIVE COCCI IN CLUSTERS, CALL PLACED TO BOTH DR. BENITES AND SHAYY TO INFORM, OF RESULT, AWAITING RESPONSE.
--- NOTE | 2023-03-13 22:31 | NUR ---
DR. BECERRA MADE AWARE OF BC RESULT. INFORMED PT IS ON VANCOMYCIN. ALSO INFORMED HIM THAT ID MD WILL ALSO BE INFORMED.
--- NOTE | 2023-03-13 23:00 | NUR ---
DR. BECERRA ORDERED TO DO BLOOD CULTURE X 2 5 MINS APART DIFFERENT SITES. WILL CARRY OUT ORDERED.
--- NOTE | 2023-03-13 23:54 | NUR ---
DR. LUCAS MADE AWARE OF RESULTS, NO NEW ORDER GIVEN.
[2023-03-14] VITALS: BP 117/78
--- NOTE | 2023-03-14 | NUR ---
VITAL SIGNS TAKEN AND DOCUMENTED. VITAL SIGNS STABLE. PT DENIES PAIN. CALL LIGHT REMAINS WITHIN REACH.
[2023-03-14] MEDS: Z-GUARD PASTE TP SCH ×2 (01:13→13:42)
[2023-03-14] MEDS: MORPHINE SULFATE 4 MG/ML SYR IVP PRN ×3 (01:39→14:18)
[2023-03-14] MEDS: VANCOMYCIN 1,500 MG in NACL 0.9% 500 ML IV SCH ×2 (02:50→14:29)
[2023-03-14 04:00] VITALS: BP 148/68
--- NOTE | 2023-03-14 06:40 | NUR ---
PATIENT MOVED TO RM 111-A WITH ALL HIS BELONGINGS. PATIENT IS AWAKE,ALERT AND ORIENTED. DENIES PAIN AT THIS TIME. ALL NEEDS ATTENDED TO SAFETY PRECAUTIONS MAINTAINED DURING THE SHIFT, CALL LIGHT GIVEN TO PT, ENCOURAGED TO CALL IF ASSISTANCE IS NEEDED, PT VERBALLY ACKNOWLEDGED.
--- NOTE | 2023-03-14 07:10 | NUR ---
RECEIVED REPORT FROM GROUT MACHINE OPERATOR NURSE FOR CONTINUITY OF CARE. PT STABLE AT THIS TIME.
[2023-03-14 08:00] VITALS: BP 147/78
[2023-03-14 08:52] LABS: BASOPHILS # (AUTO) 0.1 K/uL (0.00-0.22); EOSINOPHILS % (AUTO) 0.5 % (0.0-4.0); HEMATOCRIT 29.4 % (36-52); HEMOGLOBIN 10.1 g/dL (12.0-18.0); LYMPHOCYTES # (AUTO) 0.8 K/uL (2.0-11.5); LYMPHOCYTES % (AUTO) 8.6 % (20.5-51.1); MEAN CORPUSCULAR HEMOGLOBIN 33 pg (27-31); MEAN CORPUSCULAR HGB CONC 34 g/dL (33-37); MEAN CORPUSCULAR VOLUME 95.5 fL (80-94); MONOCYTES # (AUTO) 1.1 K/uL (0.8-1.0); MONOCYTES % (AUTO) 10.8 % (1.7-9.3); NEUTROPHILS # (AUTO) 7.7 K/uL (1.8-7.7); NEUTROPHILS % (AUTO) 79.1 % (42.2-75.2); PLATELET COUNT (AUTO) 351 K/uL (140-450); RED BLOOD CELL COUNT(AUTO) 3.08 MIL/uL (4.20-6.10); RED CELL DISTRIBUTION WIDTH 14.7 % (11.6-13.7); WHITE BLOOD COUNT (AUTO) 9.7 K/uL (4.8-10.8)
[2023-03-14 08:56] LABS: ANION GAP 12.3 (8-16); POTASSIUM 4.3 mmol/L (3.5-5.1)
[2023-03-14] MEDS ORDERED: lisinopriL 10 MG TAB PO SCH (09:00)
[2023-03-14] MEDS: carvediloL 12.5 MG TAB PO SCH (09:59)
[2023-03-14] MEDS: FUROSEMIDE 20 MG TAB PO SCH (09:59)
[2023-03-14] MEDS: PANTOPRAZOLE 40 MG TABEC PO SCH (09:59)
[2023-03-14] MEDS: RIVAROXABAN 10 MG TAB PO SCH (10:00)
[2023-03-14] MEDS: FOLIC ACID 1 MG TAB PO SCH (10:01)
[2023-03-14] MEDS: SODIUM CHLORIDE 1 GM TAB PO SCH (10:01)
[2023-03-14] MEDS: THIAMINE 100 MG TAB PO SCH (10:01)
[2023-03-14 12:00] VITALS: BP 148/68
[2023-03-14] MEDS ORDERED: VANC1.5P33 IV (13:30)
[2023-03-14] MEDS ORDERED: PANT40EC56 PO (13:32)
[2023-03-14] MEDS ORDERED: LISI10TA30 PO (13:32)
[2023-03-14] MEDS ORDERED: FURO20TA8 PO (13:32)
[2023-03-14 16:00] VITALS: BP 158/78
[2023-03-14 16:39] VITALS: BP 148/68
--- NOTE | 2023-03-14 18:10 | NUR ---
CALLED [facility] AND GAVE REPORT TO KUSHAL. NOTIFIED HER THAT STORAGE MANAGER WAS AT 1930.
--- NOTE | 2023-03-14 19:20 | NUR ---
PT PICKED UP BY TRANSP[facility]. REPORT GIVEN TO TRANSPORTERS AND PAPERWORK HANDED TO THEM.
--- NOTE | 2023-03-14 20:00 | NUR ---
Patient's Plan of Care was discussed and reviewed with TUMBLE TAILSTOCK TURRET LATHE OPERATOR: GAVIN HUNTER Addendum: 03/14/23 at 2234 by Kaylee Khan RN RN PATIENT DISCHARGED
== END 2023-03-14 19:20 | disposition home or self-care (01) | DRG 871 ==
LOC: MED 13:54 → MTU 18:14
PROVIDERS: ADMIT Family Medicine; ATTEND Family Medicine
DX: A41.9 Sepsis, unspecified organism (principal); G93.41 Metabolic encephalopathy; E87.1 Hypo-osmolality and hyponatremia; N39.0 Urinary tract infection, site not specified; I10 Essential (primary) hypertension; I35.8 Other nonrheumatic aortic valve disorders; E66.9 Obesity, unspecified; Z68.39 Body mass index [BMI] 39.0-39.9, adult; I48.91 Unspecified atrial fibrillation; E83.51 Hypocalcemia; E87.8 Other disorders of electrolyte and fluid balance, not elsewhere classified; E78.5 Hyperlipidemia, unspecified; Z20.822 Contact with and (suspected) exposure to COVID-19; F10.90 Alcohol use, unspecified, uncomplicated; D53.9 Nutritional anemia, unspecified; Z95.0 Presence of cardiac pacemaker; B95.62 Methicillin resistant Staphylococcus aureus infection as the cause of diseases classified elsewhere
CPT/HCPCS: 36415; 70450; 71045; 73060; 73630; 80048; 80053; 80202; 81001; 82140; 82150; 82553; 83036; 83605; 83690; 83735; 83880; 83930; 83935; 84100; 84300; 84436; 84439; 84443; 84479; 84484; 85025; 85610; 85730; 87040; 87081; 87086; 87186; 93005; 93313; 93880; 93970; 96361; 96374; 96375; 97112; 97116; 97530; 99285; J0696; J2250; J2270; J2405; J2543; J3010; J3370; J7030; J7060; Q0092